=== PATIENT | male | born 1935 | race African-American/Black ===

== ENCOUNTER 2024-09-26 10:32 | Emergency (ER) | payer OTHER ==
[~2024-09-26] VITALS: Ht 167.6 cm; Wt 65.0 kg
[2024-09-26 10:35] VITALS: O2SAT 97
[2024-09-26 13:01] LABS: BASOPHILS % 0.6 % (0.0-2.0); EOSINOPHILS % 1.2 % (0.0-5.0); HEMATOCRIT. 37.2 % (42.0-52.0); HEMOGLOBIN. 12.6 g/dL (14.0-18.0); LYMPHOCYTES % 20.5 % (20.0-50.0); MEAN CORPUSCULAR HEMOGLOBIN 29.9 pg (28.0-32.0); MEAN PLATELET VOLUME 9.7 fl (7.4-10.4); MONOCYTES % 6.6 % (2.0-8.0); NEUTROPHILS % 71.1 % (40.0-76.0); PLATELET 180 x1000/uL (130-400); RED BLOOD CELL COUNT 4.22 mill/uL (4.7-6.1); RED CELL DISTRIBUTION WIDTH 13.9 % (11.6-14.6); WHITE BLOOD COUNT 5.5 x1000/uL (4.5-11.0)
[2024-09-26 13:11] LABS: PROTHROMBIN TIME 11.3 sec (9.6-11.0)
[2024-09-26 13:15] LABS: CHLORIDE 103 mEq/L (98-107); POTASSIUM 3.8 mEq/L (3.5-5.1); SODIUM 138 mEq/L (136-145)
[2024-09-26 13:16] LABS: CALCIUM 10.3 mg/dL (8.7-10.4); CARBON DIOXIDE 28 mEq/L (21-32)
[2024-09-26 13:21] LABS: AMMONIA < 17 uMol/L (<32); CREATININE 2.8 mg/dL (0.6-1.3); GLUCOSE 174 mg/dL (70-105); UREA NITROGEN BLOOD 17 mg/dL (9-23)
[2024-09-26 13:54] LABS: TROPONIN I HIGH SENSITIVITY 74 ng/L (3.0-53)
[2024-09-26 13:55] LABS: ETHANOL BLOOD < 10 mg/dL (<10)
[2024-09-26] MEDS: AZITHROMYCIN 500MG/250ML 250 ML IV SCH (14:30)
[2024-09-26] MEDS: CEFTRIAXONE 2GM/50ML 50 ML IV ONE (15:41)
[2024-09-26 16:04] VITALS: BP 161/73; PULSE 73; RESP 16; TEMP 36.7; O2SAT 100
== END 2024-09-26 16:31 | disposition short-term general hospital (02) ==
LOC: ER 10:55
DX: I21.4 Non-ST elevation (NSTEMI) myocardial infarction (principal); I13.0 Hypertensive heart and chronic kidney disease with heart failure and stage 1 through stage 4 chronic kidney disease, or unspecified chronic kidney disease; J18.9 Pneumonia, unspecified organism; N17.9 Acute kidney failure, unspecified; N18.9 Chronic kidney disease, unspecified; E11.22 Type 2 diabetes mellitus with diabetic chronic kidney disease; I50.9 Heart failure, unspecified; I25.2 Old myocardial infarction; Z86.73 Personal history of transient ischemic attack (TIA), and cerebral infarction without residual deficits
CPT/HCPCS: 80048; 80320; 82140; 83880; 85025; 85610; 84484; 36415; 71045; 70450; 93005; 96367; 96365; 99291; J0456; J0696; G0480

== ENCOUNTER 2025-08-19 01:18 | Inpatient (IN) | payer OTHER ==
[2025-08-19] VITALS (11 sets, daily range): BP systolic 86–119; BP diastolic 38–69; PULSE 71–105; RESP 12–36; TEMP 36.1–36.6; O2SAT 98–100
[~2025-08-19] VITALS: Ht 167.6 cm; Wt 61.3 kg
[2025-08-19] MEDS: CEFTRIAXONE 1GM/50ML 50 ML IV ONE (02:29)
[2025-08-19] MEDS: SODIUM CHLORIDE 0.9% (SEPSIS BOLUS) IV ONE (02:29)
[2025-08-19 02:33] LABS: BASOPHILS % 0.4 % (0.0-2.0); EOSINOPHILS % 0.2 % (0.0-5.0); HEMATOCRIT. 24.1 % (42.0-52.0); HEMOGLOBIN. 8.1 g/dL (14.0-18.0); LYMPHOCYTES % 13.6 % (20.0-50.0); MEAN PLATELET VOLUME 8.3 fl (7.4-10.4); MONOCYTES % 4.7 % (2.0-8.0); NEUTROPHILS % 81.1 % (40.0-76.0); PLATELET 198 x1000/uL (130-400); RED BLOOD CELL COUNT 2.74 mill/uL (4.7-6.1); RED CELL DISTRIBUTION WIDTH 14.6 % (11.6-14.6)
[2025-08-19 02:42] LABS: INR 1.0
[2025-08-19 03:10] LABS: CREATININE 2.0 mg/dL (0.6-1.3); UREA NITROGEN BLOOD 51 mg/dL (9-23)
[2025-08-19 03:11] LABS: PROTEIN TOTAL 5.8 g/dL (6.0-8.3)
[2025-08-19 03:12] LABS: ASPARTATE AMINOTRANSFERASE 10 IU/L (<34); BILIRUBIN DIRECT 0.2 mg/dL (<=3.0); BILIRUBIN TOTAL 0.4 mg/dL (0.1-1.0)
[2025-08-19 03:26] LABS: TROPONIN I HIGH SENSITIVITY 75 ng/L (3.0-53)
[2025-08-19] MEDS: AZITHROMYCIN 500MG/250ML 250 ML IV ONE (03:55)
[2025-08-19 04:58] LABS: TROPONIN I HIGH SENSITIVITY 69 ng/L (3.0-53)
[2025-08-19] MEDS: IOHEXOL-350 100 ML BOTTLE ONE (05:32)
[2025-08-19 08:14] LABS: INFLUENZA TYPE A Presumptive Negative (Pres. Neg.)
[2025-08-19 08:15] LABS: INFLUENZA TYPE B Presumptive Negative (Pres. Neg.)
[2025-08-19 08:16] LABS: RESPIRATORY SYNCYTIAL VIRUS Not Detected (Not Detectd)
[2025-08-19] MEDS ORDERED: ACETAMINOPHEN 325MG TABLET PO PRN (09:45)
[2025-08-19] MEDS ORDERED: ONDANSETRON HCL 4MG/2ML INJ IV PRN (09:45)
[2025-08-19] MEDS: PANTOPRAZOLE SODIUM 40 MG/VIAL IV SCH (10:21)
[2025-08-19] MEDS ORDERED: HYDRALAZINE 20MG/ML VIAL IV PRN (11:30)
[2025-08-19] MEDS ORDERED: DEXTROSE 50% WATER 50ML SYRINGE IV PRN (11:30)
[2025-08-19 12:25] LABS: CREATININE 1.7 mg/dL (0.6-1.3)
[2025-08-19 12:26] LABS: UREA NITROGEN BLOOD 39.0 mg/dL (9-23)
[2025-08-19] MEDS: BLOOD SUGAR DIAGNOSTIC STRIP TEST SCH (12:30)
[2025-08-19 12:47] LABS: BASOPHILS % 0.1 % (0.0-2.0); EOSINOPHILS % 0.5 % (0.0-5.0); HEMATOCRIT. 21.5 % (42.0-52.0); HEMOGLOBIN. 7.3 g/dL (14.0-18.0); LYMPHOCYTES % 14.6 % (20.0-50.0); MEAN PLATELET VOLUME 8.8 fl (7.4-10.4); MONOCYTES % 5.4 % (2.0-8.0); NEUTROPHILS % 79.4 % (40.0-76.0); PLATELET 182 x1000/uL (130-400); RED BLOOD CELL COUNT 2.40 mill/uL (4.7-6.1); RED CELL DISTRIBUTION WIDTH 14.8 % (11.6-14.6)
[2025-08-19] MEDS: INSULIN LISPRO 100 UNITS/ML SUBCUT SCH (13:18)
[2025-08-19 20:21] LABS: CLARITY URINE CLEAR (CLEAR); COLOR URINE YELLOW (YELLOW); GLUCOSE URINE TRACE (NEGATIVE); KETONES URINE NEGATIVE (NEGATIVE); LEUKOCYTE ESTERASE URINE NEGATIVE (NEGATIVE); NITRITE URINE NEGATIVE (NEGATIVE); OCCULT BLOOD URINE TRACE (NEGATIVE); PH URINE 5.0 (4.5-8.0); PROTEIN URINE 1+ (NEGATIVE); SPECIFIC GRAVITY URINE 1.044 (1.005-1.030); UROBILINOGEN URINE 0.2 E.U./dL (0.2-1.0)
[2025-08-19 20:28] LABS: *AMPHETAMINES SCREEN URINE NEGATIVE (NEGATIVE); *BENZODIAZEPINES SCREEN URINE NEGATIVE (NEGATIVE)
[2025-08-19 20:29] LABS: *BARBITURATES SCREEN URINE NEGATIVE (NEGATIVE); *COCAINE SCREEN URINE NEGATIVE (NEGATIVE); CANNABINOID URINE SCREEN NEGATIVE (NEGATIVE); ECSTASY MDMA SCREEN URINE NEGATIVE (NEGATIVE); METHADONE URINE SCREEN NEGATIVE (NEGATIVE); OPIATES URINE SCREEN NEGATIVE (NEGATIVE); PHENCYCLIDINE URINE SCREEN NEGATIVE (NEGATIVE)
[2025-08-19 20:48] LABS: BACTERIA URINE NONE SEEN; RBC URINE NONE SEEN /hpf (0-2); SQUAMOUS EPITHELIAL CELL URINE NONE SEEN /lpf (RARE/1+); WBC URINE NONE SEEN /hpf (0-2)
[2025-08-19] MEDS: MIDODRINE HCL 5MG TABLET PO PRN (21:19)
[2025-08-19] MEDS: SODIUM CHLORIDE 0.9% 1,000 ML IV SCH (21:20)
[2025-08-20] VITALS (17 sets, daily range): BP systolic 80–158; BP diastolic 49–103; PULSE 56–114; RESP 13–38; TEMP 36.1–36.7; O2SAT 98–100
[2025-08-20] MEDS: CEFTRIAXONE 1GM/50ML 50 ML IV SCH (02:17)
[2025-08-20] MEDS: AZITHROMYCIN 500MG/250ML 250 ML IV SCH (03:39)
[2025-08-20 06:35] LABS: BASOPHILS % 0.3 % (0.0-2.0); EOSINOPHILS % 0.7 % (0.0-5.0); LYMPHOCYTES % 13.4 % (20.0-50.0); MEAN PLATELET VOLUME 8.9 fl (7.4-10.4); MONOCYTES % 4.5 % (2.0-8.0); NEUTROPHILS % 81.1 % (40.0-76.0); PLATELET 181 x1000/uL (130-400); RED BLOOD CELL COUNT 2.03 mill/uL (4.7-6.1); RED CELL DISTRIBUTION WIDTH 14.7 % (11.6-14.6)
[2025-08-20 06:44] LABS: CREATININE 1.8 mg/dL (0.6-1.3)
[2025-08-20 06:45] LABS: UREA NITROGEN BLOOD 44.0 mg/dL (9-23)
[2025-08-20 07:13] LABS: HEMOGLOBIN. 6.1 g/dL (14.0-18.0)
[2025-08-20 07:14] LABS: HEMATOCRIT. 18.1 % (42.0-52.0)
[2025-08-20] MEDS: IPRATROPIUM/ALBUTEROL 0.5-3(2.5)MG/3ML NEB HHN SCH (08:22)
[2025-08-20 08:53] LABS: BG BASE EXCESS 1.0 mmol/L (-2.0-3.0); BG CARBOXYHEMOGLOBIN 1.2 % (0.5-1.5); BG DEOXYHEMOGLOBIN 0.2 % (0.0-5.0); BG FLOW(L/min) 4.00 L/min; BG FRACTION INSPIRED OXYGEN 36; BG HCO3 ACT 23.9 mmol/L (21.0-28.0); BG METHEMOGLOBIN 0.3 % (0.5-1.5); BG OXYGEN SATURATION 99.8 % (94.0-98.0); BG OXYHEMOGLOBIN 98.3 % (94.0-98.0); BG PCO2 30.1 mmHg (35.0-48.0); BG PH 7.518 (7.350-7.450); BG PO2 194.2 mmHg (83.0-108.0); BG SAMPLE SITE RH; BG TOTAL HEMOGLOBIN 6.2 g/dL (13.5-17.5); BG VENT MODE NASAL CANNULA
[2025-08-21] VITALS (19 sets, daily range): BP systolic 96–169; BP diastolic 44–80; PULSE 44–85; RESP 11–24; TEMP 36.00288–36.61404; O2SAT 97–100
[2025-08-21 03:12] LABS: INR 1.1
[2025-08-21 05:31] LABS: CREATININE 1.7 mg/dL (0.6-1.3)
[2025-08-21 05:32] LABS: UREA NITROGEN BLOOD 36 mg/dL (9-23)
[2025-08-21 05:36] LABS: FOLIC ACID (FOLATE) SERUM 6.52 ng/mL (>5.38)
[2025-08-21 05:37] LABS: VITAMIN B12 SERUM 629 pg/mL (211-911)
[2025-08-21 05:59] LABS: BASOPHILS % 0.5 % (0.0-2.0); EOSINOPHILS % 2.8 % (0.0-5.0); LYMPHOCYTES % 27.0 % (20.0-50.0); MEAN PLATELET VOLUME 8.7 fl (7.4-10.4); MONOCYTES % 5.7 % (2.0-8.0); NEUTROPHILS % 64.0 % (40.0-76.0); PLATELET 169 x1000/uL (130-400); RED BLOOD CELL COUNT 2.31 mill/uL (4.7-6.1); RED CELL DISTRIBUTION WIDTH 14.2 % (11.6-14.6)
[2025-08-21 07:00] LABS: HEMATOCRIT. 20.4 % (42.0-52.0); HEMOGLOBIN. 7.0 g/dL (14.0-18.0)
[2025-08-21] MEDS: POTASSIUM CHLORIDE 20MEQ TABLET SR PO NR (17:15)
[2025-08-21] MEDS ORDERED: IOHEXOL-350 100 ML BOTTLE ONE (23:12)
[2025-08-22 07:08] LABS: ALPHA FETOPROTEIN TUMOR MARKER < 1.8 ng/mL (0.0-6.4); CA 19-9 < 2 U/mL (0-35); CARCINOEMBRYONIC AG - SEND OUT 1.7 ng/mL (0.0-4.7); PROSTATE SPECIFIC AG TOTAL 0.4 ng/mL (0.0-4.0)
== END 2025-08-21 21:57 | disposition short-term general hospital (02) | DRG 871 ==
LOC: ER 01:18 → 5EST 03:37 → EDBEDREQTM 04:36 → EDBEDREQ 04:36 → ENRESERV 06:23
PROVIDERS: ADMIT Internal Medicine; ATTEND Internal Medicine
PROC: 30233N1 Transfusion of Nonautologous Red Blood Cells into Peripheral Vein, Percutaneous Approach (ICD-10-PCS; principal; 2025-08-20)
DX: A41.9 Sepsis, unspecified organism (principal); I21.4 Non-ST elevation (NSTEMI) myocardial infarction; J96.01 Acute respiratory failure with hypoxia; E87.20 Acidosis, unspecified; G93.49 Other encephalopathy; D64.9 Anemia, unspecified; E11.22 Type 2 diabetes mellitus with diabetic chronic kidney disease; K92.1 Melena; N17.9 Acute kidney failure, unspecified; I12.9 Hypertensive chronic kidney disease with stage 1 through stage 4 chronic kidney disease, or unspecified chronic kidney disease; N18.32 Chronic kidney disease, stage 3b; G30.9 Alzheimer's disease, unspecified; Z20.822 Contact with and (suspected) exposure to COVID-19; F02.80 Dementia in other diseases classified elsewhere, unspecified severity, without behavioral disturbance, psychotic disturbance, mood disturbance, and anxiety; G90.89 Other disorders of autonomic nervous system; E61.1 Iron deficiency; I48.91 Unspecified atrial fibrillation; K64.9 Unspecified hemorrhoids; I25.2 Old myocardial infarction; Z85.46 Personal history of malignant neoplasm of prostate; Z86.73 Personal history of transient ischemic attack (TIA), and cerebral infarction without residual deficits; Z92.21 Personal history of antineoplastic chemotherapy; Z92.3 Personal history of irradiation
CPT/HCPCS: 36415; 36600; 71045; 71275; 80048; 80076; 80305; 81003; 82105; 82270; 82375; 82378; 82607; 82728; 82746; 82805; 82962; 83036; 83540; 83550; 83605; 83880; 84145; 84153; 84484; 85014; 85018; 85025; 85044; 85049; 85379; 85384; 86301; 86850; 86900; 86920; 87420; 87426; 87804; 93005; 94070; 94640; 96365; 99291; A4606; A4615; J0456; J0696; J1815; J2470; J7030; P9016; Q9967